=== PATIENT | female | born 1950 | race Caucasian/White ===

== ENCOUNTER 2017-07-02 09:10 | Emergency (ER) | payer MEDICARE ==
[2017-07-02 09:17] VITALS: TEMP 97.7
[2017-07-02] MEDS ORDERED: SODIUM CHLORIDE 0.9% 1,000 ML IV ONE (09:41)
--- NOTE | 2017-07-02 09:46 | ED ---
General Adult HPI - General Chief complaint: Chest Pain Stated complaint: CHEST PAIN, ABNORMAL EKG Time Seen by Provider: 07/02/17 09:21 Source: patient, RN notes reviewed, old records reviewed Mode of arrival: wheelchair Limitations: no limitations - History of Present Illness Initial comments: 67-year-old female presenting for evaluation of cough and chest pain. Patient was sent over from her primary care's office for evaluation of chest pain with suspected EKG changes. Patient initially presented with cough, chills, and burning anterior chest pain. She states the pain is worse with cough. Cough has begun to be productive of yellow sputum. Denies any radiating character to her pain. No history of CAD. Patient does have history of hypertension and hypercholesterolemia. No vomiting or diarrhea. No abdominal pain. No lower extremity swelling. Symptoms began on which was 4 days ago, significantly worsened on Sunday. - Related Data Home Medications Medication Instructions Recorded Confirmed Atorvastatin [Lipitor] 20 mg PO HS 08/11/15 07/02/17 Cholecalciferol [Vitamin D3] 1,000 unit PO DAILY 08/11/15 07/02/17 Fish Oil/Dha/Epa [Fish Oil 1,200 1 cap PO DAILY 08/11/15 07/02/17 mg Fish Oil] Ubidecarenone [Co Q-10] 100 mg PO DAILY 08/11/15 07/02/17 Lisinopril [Zestril] 20 mg PO BID 07/02/17 07/02/17 Previous Rx's Medication Instructions Recorded Albuterol Inhaler [Ventolin Hfa 1 - 2 puff INHALATION Q4HR PRN #1 07/02/17 Inhaler] inhaler Allergies Allergy/AdvReac Type Severity Reaction Status Date / Time codeine Allergy Dizzy & Verified 07/02/17 09:58 vomiting ibuprofen Allergy Abdominal Verified 07/02/17 09:58 Pain mold Allergy Congestion, Verified 07/02/17 09:58 Nausea prednisone Allergy Hallucinations, Verified 07/02/17 09:58 Hyperactivity mildew Allergy Congestion, Uncoded 07/02/17 09:18 Nausea pine trees Allergy Congestion, Uncoded 07/02/17 09:18 Nausea Review of Systems ROS Statement: Those systems with pertinent positive or pertinent negative responses have been documented in the HPI. ROS Other: All systems not noted in ROS Statement are negative. Past Medical History Past Medical History: Hyperlipidemia, Hypertension, Rheumatoid Arthritis (RA) Additional Past Medical History / Comment(s): kidney stones (still have some), gallstaone, mild IBS, lymphedema around aorta History of Any Multi-Drug Resistant Organisms: None Reported Past Surgical History: Hysterectomy, Tonsillectomy Additional Past Surgical History / Comment(s): 1981 partial hysterectomy w/ bladder suspension, Past Anesthesia/Blood Transfusion Reactions: No Reported Reaction Past Psychological History: No Psychological Hx Reported Smoking Status: Former smoker Past Alcohol Use History: None Reported Past Drug Use History: None Reported - Past Family History Mother Family Medical History: Cancer, Coronary Artery Disease (CAD) Additional Family Medical History / Comment(s): ca: lung Father Family Medical History: AICD/Pacemaker, Cancer Additional Family Medical History / Comment(s): from nonhodgkins lymphoma General Exam Limitations: no limitations General appearance: alert, in no apparent distress Head exam: Present: atraumatic, normocephalic Eye exam: Present: normal appearance, PERRL, EOMI ENT exam: Present: normal exam Neck exam: Present: normal inspection. Absent: tenderness, meningismus Respiratory exam: Present: normal lung sounds bilaterally, other (No wheezing, bronchospastic cough). Absent: respiratory distress, wheezes, rhonchi Cardiovascular Exam: Present: regular rate, normal rhythm, normal heart sounds. Absent: rubs GI/Abdominal exam: Present: soft. Absent: distended, tenderness Extremities exam: Present: normal inspection, full ROM, tenderness. Absent: normal capillary refill, pedal edema Neurological exam: Present: alert, oriented X3, CN II-XII intact. Absent: motor sensory deficit Psychiatric exam: Present: normal affect, normal mood Skin exam: Present: warm, dry, intact. Absent: cyanosis, diaphoretic Course Vital Signs 07/02/17 07/02/17 09:14 09:51 Temperature 97.7 F Pulse Rate 94 89 Respiratory 18 16 Rate Blood Pressure 133/64 142/74 O2 Sat by Pulse 100 99 Oximetry - Reevaluation(s) Reevaluation #1: 07/02/17 10:14 Case discussed with the referring physician acute care nursing assistant, states patient was quite lethargic, there was concern as to the possibility of a cardiac cause of her symptoms, and she was sent to the emergency department for evaluation. EKG Findings - EKG Comments: EKG Findings:: EKG normal sinus rhythm, ventricular rate of 90, OR interval 160 , QRS duration 82, QTC 440, there is OR depression in the inferior leads no ST segment elevation or depression, no T-wave abnormality. Medical Decision Making - Medical Decision Making 67-year-old female presenting with a productive cough and generalized weakness. Patient does have a burning anterior chest pain worse with cough. Vital signs stable, laboratory studies reveal normal white blood cell count, stable hemoglobin, electrolytes within normal limits. Troponin negative. D-dimer negative. Influenza is positive. Patient's symptoms have been present for approximately 3-4 days. She is offered Tamiflu, patient declines. Patient will be prescribed albuterol for bronchospastic cough. She will continue to maintain hydration at home. Return with any worsening or changing symptoms. - Lab Data Result diagrams: 07/02/17 09:46 07/02/17 09:46 Lab Results 07/02/17 07/02/17 07/02/17 Range/Units 09:46 09:46 09:46 WBC 7.3 (3.8-10.6) k/uL RBC 5.09 (3.80-5.40) m/uL Hgb 14.4 (11.4-16.0) gm/dL Hct 44.6 (34.0-46.0) % MCV 87.5 (80.0-100.0) fL MCH 28.3 (25.0-35.0) pg MCHC 32.3 (31.0-37.0) g/dL RDW 13.1 (11.5-15.5) % Plt Count 277 (150-450) k/uL Neutrophils % 76 % Lymphocytes % 14 % Monocytes % 7 % Eosinophils % 1 % Basophils % 0 % Neutrophils # 5.5 (1.3-7.7) k/uL Lymphocytes # 1.1 (1.0-4.8) k/uL Monocytes # 0.5 (0-1.0) k/uL Eosinophils # 0.1 (0-0.7) k/uL Basophils # 0.0 (0-0.2) k/uL PT (9.0-12.0) sec INR (<1.2) APTT (22.0-30.0) sec D-Dimer (<0.60) mg/L FEU Sodium 143 (137-145) mmol/L Potassium 4.2 (3.5-5.1) mmol/L Chloride 102 (98-107) mmol/L Carbon Dioxide 27 (22-30) mmol/L Anion Gap 14 mmol/L BUN 17 (7-17) mg/dL Creatinine 0.78 (0.52-1.04) mg/dL Est GFR (CKD-EPI)AfAm >90 (>60 ml/min/1.73 sqM) Est GFR (CKD-EPI)NonAf 78 (>60 ml/min/1.73 sqM) Glucose 92 (74-99) mg/dL Calcium 10.1 (8.4-10.2) mg/dL Magnesium 2.0 (1.6-2.3) mg/dL Total Bilirubin 0.4 (0.2-1.3) mg/dL AST 34 (14-36) U/L ALT 47 (9-52) U/L Alkaline Phosphatase 83 (38-126) U/L Total Creatine Kinase 49 (30-135) U/L CK-MB (CK-2) 0.4 (0.0-2.4) ng/mL CK-MB (CK-2) Rel Index 0.8 Troponin I <0.012 (0.000-0.034) ng/mL Total Protein 6.9 (6.3-8.2) g/dL Albumin 4.3 (3.5-5.0) g/dL Lipase 296 (23-300) U/L Influenza Type A RNA (Not Detectd) Influenza Type B (PCR) (Not Detectd) 07/02/17 07/02/17 Range/Units 09:46 09:46 WBC (3.8-10.6) k/uL RBC (3.80-5.40) m/uL Hgb (11.4-16.0) gm/dL Hct (34.0-46.0) % MCV (80.0-100.0) fL MCH (25.0-35.0) pg MCHC (31.0-37.0) g/dL RDW (11.5-15.5) % Plt Count (150-450) k/uL Neutrophils % % Lymphocytes % % Monocytes % % Eosinophils % % Basophils % % Neutrophils # (1.3-7.7) k/uL Lymphocytes # (1.0-4.8) k/uL Monocytes # (0-1.0) k/uL Eosinophils # (0-0.7) k/uL Basophils # (0-0.2) k/uL PT 9.4 (9.0-12.0) sec INR 0.9 (<1.2) APTT 23.2 (22.0-30.0) sec D-Dimer 0.30 (<0.60) mg/L FEU Sodium (137-145) mmol/L Potassium (3.5-5.1) mmol/L Chloride (98-107) mmol/L Carbon Dioxide (22-30) mmol/L Anion Gap mmol/L BUN (7-17) mg/dL Creatinine (0.52-1.04) mg/dL Est GFR (CKD-EPI)AfAm (>60 ml/min/1.73 sqM) Est GFR (CKD-EPI)NonAf (>60 ml/min/1.73 sqM) Glucose (74-99) mg/dL Calcium (8.4-10.2) mg/dL Magnesium (1.6-2.3) mg/dL Total Bilirubin (0.2-1.3) mg/dL AST (14-36) U/L ALT (9-52) U/L Alkaline Phosphatase (38-126) U/L Total Creatine Kinase (30-135) U/L CK-MB (CK-2) (0.0-2.4) ng/mL CK-MB (CK-2) Rel Index Troponin I (0.000-0.034) ng/mL Total Protein (6.3-8.2) g/dL Albumin (3.5-5.0) g/dL Lipase (23-300) U/L Influenza Type A RNA Detected H (Not Detectd) Influenza Type B (PCR) Not Detected (Not Detectd) Disposition Clinical Impression: Influenza A Disposition: HOME SELF-CARE Condition: Fair Instructions: Influenza (ED) Prescriptions: Albuterol Inhaler [Ventolin Hfa Inhaler] 1 - 2 puff INHALATION Q4HR PRN #1 inhaler PRN Reason: Shortness Of Breath Referrals: Brown Emery MD [Primary Care Provider] - 1-2 days Time of Disposition: 10:50
[2017-07-02 10:00] LABS: Basophils % (A) 0 %; Eosinophils # (A) 0.1 k/uL (0-0.7); Eosinophils % (A) 1 %; HCT 44.6 % (34.0-46.0); HGB 14.4 gm/dL (11.4-16.0); Lymphocytes # (A) 1.1 k/uL (1.0-4.8); Lymphocytes % (A) 14 %; MCH 28.3 pg (25.0-35.0); MCHC 32.3 g/dL (31.0-37.0); MCV 87.5 fL (80.0-100.0); Mean Platelet Volume 6.7; Monocytes # (A) 0.5 k/uL (0-1.0); Monocytes % (A) 7 %; Neutrophils # (A) 5.5 k/uL (1.3-7.7); Neutrophils % (A) 76 %; Platelet Count 277 k/uL (150-450); RBC 5.09 m/uL (3.80-5.40); RDW 13.1 % (11.5-15.5); WBC 7.3 k/uL (3.8-10.6)
--- NOTE | 2017-07-02 10:06 | XR ---
EXAMINATION TYPE: XR chest 2V DATE OF EXAM: 07/02/2017 COMPARISON: NONE HISTORY: Cough congestion and chest pain. TECHNIQUE: Frontal and lateral views of the chest are obtained. FINDINGS: There is no focal air space opacity, pleural effusion, or pneumothorax seen. The cardiac silhouette size is within normal limits. The osseous structures are intact. IMPRESSION: No acute process.
[2017-07-02 10:14] LABS: ALT 47 U/L (9-52); AST 34 U/L (14-36); Albumin 4.3 g/dL (3.5-5.0); Alkaline Phosphatase 83 U/L (38-126); Anion Gap 14 mmol/L; Blood Urea Nitrogen 17 mg/dL (7-17); Calcium 10.1 mg/dL (8.4-10.2); Carbon Dioxide 27 mmol/L (22-30); Chloride 102 mmol/L (98-107); Glucose 92 mg/dL (74-99); Lipase 296 U/L (23-300); Potassium 4.2 mmol/L (3.5-5.1); Sodium 143 mmol/L (137-145); Total Bilirubin 0.4 mg/dL (0.2-1.3); Total Protein 6.9 g/dL (6.3-8.2)
[2017-07-02 10:15] LABS: D-Dimer 0.3 mg/L FEU (<0.60)
[2017-07-02 10:19] LABS: INR 0.9 (<1.2); Partial Thromboplastin Time 23.2 sec (22.0-30.0); Prothrombin Time 9.4 sec (9.0-12.0)
[2017-07-02 10:23] LABS: Creatine Kinase 49 U/L (30-135)
[2017-07-02 10:35] LABS: Creatine Kinase MB 0.4 ng/mL (0.0-2.4); Troponin I <0.012 ng/mL (0.000-0.034)
[2017-07-02 12:20] VITALS: BP 134/69; PULSE 79; RESP 18
== END 2017-07-02 12:20 | disposition home or self-care (01) ==
LOC: EC 09:10
DX: J10.1 Influenza due to other identified influenza virus with other respiratory manifestations (principal); R07.9 Chest pain, unspecified; E78.00 Pure hypercholesterolemia, unspecified; I10 Essential (primary) hypertension; M06.9 Rheumatoid arthritis, unspecified; Z88.5 Allergy status to narcotic agent; Z88.6 Allergy status to analgesic agent; Z91.048 Other nonmedicinal substance allergy status; Z88.8 Allergy status to other drugs, medicaments and biological substances; Z79.899 Other long term (current) drug therapy; Z87.891 Personal history of nicotine dependence
CPT/HCPCS: 36415; 71046; 80053; 82550; 82553; 83690; 83735; 83880; 84484; 85025; 85379; 85610; 85730; 87502; 93005; 96360; 96361; 99285

== ENCOUNTER → 2018-02-14 | Outpatient (CLI) | payer MEDICARE ==
--- NOTE | 2018-02-18 10:01 | MM ---
Reason for exam: screening (asymptomatic). Last mammogram was performed 1 year ago. History: Patient is postmenopausal. Family history of breast cancer in maternal aunt at age 55 and breast cancer in maternal cousin at age 30. Benign stereotactic core biopsy of the left breast. Took estrogen for 4 years beginning at age 32. Physical Findings: A clinical breast exam by your physician is recommended on an annual basis and results should be correlated with mammographic findings. MG 3D Screening Mammo W/Cad Bilateral CC and MLO view(s) were taken. Prior study comparison: February 02, 2017, left breast MG 3d work up w/cad LT. January 31, 2017, bilateral MG 3d screening mammo w/cad. The breast tissue is extremely dense which could obscure a lesion on mammography. No significant changes when compared with prior studies. ASSESSMENT: Benign, BI-RAD 2 RECOMMENDATION: Routine screening mammogram of both breasts in 1 year.
== END | disposition home or self-care (01) ==
LOC: RADMAMWWP 12:55
PROVIDERS: ATTEND Family Medicine
DX: Z12.31 Encounter for screening mammogram for malignant neoplasm of breast (principal)
CPT/HCPCS: 77063; 77067

== ENCOUNTER → 2019-03-05 | Outpatient (CLI) | payer MEDICARE ==
--- NOTE | 2019-03-05 12:10 | MM ---
Reason for exam: screening (asymptomatic). Last mammogram was performed 1 year and 1 month ago. History: Patient is postmenopausal. Family history of breast cancer in maternal aunt at age 55 and breast cancer in maternal cousin at age 30. Benign stereotactic core biopsy of the left breast. Took estrogen for 4 years beginning at age 32. Physical Findings: A clinical breast exam by your physician is recommended on an annual basis and results should be correlated with mammographic findings. MG 3D Screening Mammo W/Cad Bilateral CC and MLO view(s) were taken. Prior study comparison: February 14, 2018, bilateral MG 3d screening mammo w/cad. February 02, 2017, left breast MG 3d work up w/cad LT. The breast tissue is heterogeneously dense. This may lower the sensitivity of mammography. Asymmetric breast tissue left central breast, stable. There is no discrete abnormality. ASSESSMENT: Negative, BI-RAD 1 RECOMMENDATION: Routine screening mammogram of both breasts in 1 year.
== END | disposition home or self-care (01) ==
LOC: RADMAMWWP 10:24
PROVIDERS: ATTEND Family Medicine
DX: Z12.31 Encounter for screening mammogram for malignant neoplasm of breast (principal)
CPT/HCPCS: 77063; 77067

== ENCOUNTER → 2020-06-10 | Outpatient (CLI) | payer MEDICARE ==
--- NOTE | 2020-06-10 12:32 | MM ---
Reason for exam: screening (asymptomatic). Last mammogram was performed 1 year and 3 months ago. History: Patient is postmenopausal. Family history of breast cancer in maternal aunt at age 55 and breast cancer in maternal cousin at age 30. Benign stereotactic core biopsy of the left breast. Took estrogen for 4 years beginning at age 32. Physical Findings: A clinical breast exam by your physician is recommended on an annual basis and results should be correlated with mammographic findings. MG 3D Screening Mammo W/Cad Bilateral CC and MLO view(s) were taken. Prior study comparison: March 05, 2019, bilateral MG 3d screening mammo w/cad. February 14, 2018, bilateral MG 3d screening mammo w/cad. The breast tissue is heterogeneously dense. This may lower the sensitivity of mammography. There are benign appearing round calcifications bilaterally. There is no discrete abnormality. ASSESSMENT: Benign, BI-RAD 2 RECOMMENDATION: Routine screening mammogram of both breasts in 1 year.
== END ==
LOC: RADMAMWWP 09:15
PROVIDERS: ATTEND Family Medicine
DX: Z12.31 Encounter for screening mammogram for malignant neoplasm of breast (principal); Z78.0 Asymptomatic menopausal state; Z80.3 Family history of malignant neoplasm of breast
CPT/HCPCS: 77063; 77067

== ENCOUNTER → 2020-08-10 | Outpatient (CLI) | payer MEDICARE ==
--- NOTE | 2020-08-10 11:29 | CT ---
EXAMINATION TYPE: CT soft tissue neck w con DATE OF EXAM: 08/10/2020 HISTORY: lymphadenopathy COMPARISON: NONE CT DLP: 317.6 mGycm. Automated Exposure Control for Dose Reduction was Utilized. TECHNIQUE: CT scan of the neck is performed with IV Contrast, patient injected with 100 mL of Isovue 300, axial images are obtained, coronal and sagittal reformatted images are reviewed. FINDINGS: Airway: Incidental subcentimeter left thyroid nodules suspected.. Parotid/submandibular glands: No gross abnormality seen. Carotid/Vascular Structures: Mild calcified plaque right carotid bulb. Probable significant stenosis origin of left external carotid artery Osseous Structures: Sclerosis and suspicious pathologic fracture C5 vertebra. No bony retropulsion. A lignment satisfactory. Underlying scoliotic curvature in the cervical thoracic spine Other: Abnormal left supraclavicular lymph node for reference is 1.3 x 1.4 cm lymph node image 30 pos terior to left common carotid artery. Abnormal right-sided supraclavicular lymph nodes also seen, the re is 2.1 x 1.9 cm lymph node axial image 31 compressing IVC anteriorly. Additional abnormal supracla vicular lymph nodes are present bilaterally. Prominent but subcentimeter lymph nodes predominantly throughout the majority of neck, there is enlar ged right posterior cervical triangle 1.3 x 1.0 cm lymph node axial image 60. There is enlarged 1.4 x 1.1 cm left lateral lymph node at level of thyroid gland axial image 42. Larger lymph nodes seen inf erior to this axial image 38. IMPRESSION: Abnormal bilateral supraclavicular adenopathy. 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 Findings strongly suspicious for metastatic neoplasm. Etiology uncertain. Consi emmanuel PET/CT to further evaluate. Consider imaging guided sampling. Correlate clinically to determine e tiology advised.
== END | disposition home or self-care (01) ==
LOC: RADCTMAIN 08:23
PROVIDERS: ATTEND Family Medicine
DX: R59.0 Localized enlarged lymph nodes (principal)
CPT/HCPCS: 70491; Q9967

== ENCOUNTER → 2020-08-27 | Outpatient (CLI) | payer MEDICARE ==
--- NOTE | 2020-08-30 12:44 | PE ---
EXAMINATION TYPE: PET CT fusion skull to thigh DATE OF EXAM: 08/27/2020 COMPARISON: CT neck 17 days ago . HISTORY: Abnormal CT, neck adenopathy TECHNIQUE: Following the intravenous administration of 10.69 mCi of F-18 FDG, whole body images are performed from the skull base to the midthigh. Images are reviewed on the computer in the coronal, a xial, and sagittal planes. Reconstructed rotating images are created on independent workstation and reviewed on the computer. A localization and attenuation correction CT is performed in conjunction with the PET scan. Blood glucose level was 85. SCAN: Initial Scan FINDINGS: Mean SUV mediastinum: 1.05 Mean SUV liver: 2.1 SKULL BASE AND NECK: Redemonstration of multiple abnormal bilateral neck lymph nodes. Confluent Abno rmal adenopathy in the cervical prevertebral region axial image 43. Max SUV is 15.6. Hypermetabolic 1 .1 x 1.0 cm posterior cervical triangle lymph node above the hyoid bone axial image 40. Max SUV is 5. 87. Posterior lower cervical 1.5 x 1.4 cm lymph node axial image 49 is redemonstrated, max SUV is 5.1 3. Largest right supraclavicular lymph node adjacent to right thyroid lobe redemonstrated axial image 61 measuring 2.4 x 2.2 cm, max SUV is 7.9. Additional s scattered hypermetabolic lymph nodes are pre sent. CHEST, MEDIASTINUM, AND HILAR REGION: Abnormal uptake in the anterior superior mediastinum extends to the supraclavicular region bilaterally. Abnormal right lateral upper thoracic hypermetabolic just un emmanuel 1.0 cm lymph node axial image 61, max SUV is 10.01. No abnormal hypermetabolic axillary or additional mid mediastinal or bilateral hilar lymph nodes. ABDOMEN AND PELVIS: Abnormal hypermetabolic 1.4 x 1.2 cm posterior caval lymph node axial image 138, max SUV is 4.02. Abnormal large left periaortic 5.5 x 4.0 cm hypermetabolic lymph node axial image 150, max SUV is 17. 48. Additional scattered hypermetabolic left periaortic lymph nodes extend to level of the iliac bifu rcation. There are additional posterior upper pelvic subcentimeter hypermetabolic lymph nodes for ref erence axial image 174 and 181, max SUV is 3.7. OSSEOUS STRUCTURES: No areas of abnormal hypermetabolic uptake. OTHER CT: Mild to moderate coronary artery calcification. Dependent rim hyperdense gallstone. Nonobst ructing bilateral renal calculi. Uterus surgically absent or markedly atrophic. IMPRESSION: There is hypermetabolic adenopathy greatest in the mid to lower neck and in the left mid to lower retroperitoneum of the abdomen. Involvement above and below diaphragm is noted.
== END | disposition home or self-care (01) ==
LOC: RADPETMAIN 07:58
PROVIDERS: ATTEND Family Medicine
DX: R59.1 Generalized enlarged lymph nodes (principal)
CPT/HCPCS: 78815; A9552

== ENCOUNTER 2020-09-07 11:41 | Day surgery (SDC) | payer MEDICARE ==
[2020-09-07 12:31] VITALS: TEMP 98.3
[2020-09-07 14:13] VITALS: BP 134/81; PULSE 69; RESP 16
--- NOTE | 2020-09-07 16:04 | US ---
EXAMINATION TYPE: US biopsy lymph node DATE OF EXAM: 09/07/2020 HISTORY: Cervical adenopathy. FINDINGS: Maximal barrier technique was utilized. Hand hygiene achieved with soap and water and alco hol-based hand rub. The skin overlying a suitable path to the patient's left exterior neck adenopathy was localized with ultrasound and the overlying skin prepped and draped. Ultrasound was utilized wi th sterile technique. Lidocaine was used for local anesthesia. A skin ag was made with a scalpel. An 18-gauge needle was advanced under direct ultrasound guidance and core specimen obtained of the mass. 2passes were made. Specimen submitted in formalin to Pathology. Following the procedure, hemo stasis achieved and the patient is discharged in stable condition without complication. IMPRESSION:STATUS POST ULTRASOUND GUIDED CORE BIOPSY LEFT CERVICAL ADENOPATHY, PATHOLOGY IS PENDING. THIS PROCEDURE IS PERFORMED BY THE UNDERSIGNED.
== END 2020-09-07 14:10 | disposition home or self-care (01) ==
LOC: RADPROMAIN 11:41
PROVIDERS: ATTEND Family Medicine
DX: R59.0 Localized enlarged lymph nodes (principal)
CPT/HCPCS: 38505; 76942; 88305; 88341; 88342

== ENCOUNTER → 2020-10-15 | Outpatient (CLI) | payer MEDICARE ==
--- NOTE | 2020-10-16 09:08 | ECHOF ---
Referral Reason:Z01.818 Pre chemo exposure MEASUREMENTS -------- HEIGHT: 165.1 cm WEIGHT: 63.5 kg BP: RVIDd: 2.8 cm (< 3.3) IVSd: 1.0 cm (0.6 - 1.1) LVIDd: 4.3 cm (3.9 - 5.3) LVPWd: 1.1 cm (0.6 - 1.1) IVSs: 1.2 cm LVIDs: 3.0 cm LVPWs: 1.3 cm LA Diam: 3.5 cm (2.7 - 3.8) Ao Diam: 3.1 cm (2.0 - 3.7) AV Cusp: 2.0 cm (1.5 - 2.6) MV EXCURSION: 13.666 mm (> 18.000) MV EF SLOPE: 47 mm/s (70 - 150) EPSS: 0.5 cm MV E Fuad: 0.42 m/s MV DecT: 340 ms MV A Fuad: 0.89 m/s MV E/A Ratio: 0.47 RAP: 5.00 mmHg RVSP: 29.04 mmHg FINDINGS -------- Sinus rhythm. This was a technically good study. LV size, wall thickness and systolic function are normal, with an EF greater than 55%. The left yenny tricular size is normal. The right ventricle is normal in size. The left atrial size is normal. The right atrial size is normal. There is mild aortic valve sclerosis. There is no evidence of aortic regurgitation. Mild mitral regurgitation is present. Mild tricuspid regurgitation present. Right ventricular systolic pressure is normal at < 35 mmHg. There is no pulmonic regurgitation present. Echo free space represents a pericardial fat pad. CONCLUSIONS -------- 1. LV size, wall thickness and systolic function are normal, with an EF greater than 55%. 2. The left ventricular size is normal. 3. The right ventricle is normal in size. 4. The left atrial size is normal. 5. The right atrial size is normal. 6. There is mild aortic valve sclerosis. 7. Mild mitral regurgitation is present. 8. Mild tricuspid regurgitation present. 9. Echo free space represents a pericardial fat pad. DOOR MANAGER: Gema Ashraf RD
== END | disposition home or self-care (01) ==
LOC: RADECHMAIN 12:35
PROVIDERS: ATTEND Internal Medicine Hematology & Oncology
DX: Z01.818 Encounter for other preprocedural examination (principal); I08.1 Rheumatic disorders of both mitral and tricuspid valves
CPT/HCPCS: 93306

== ENCOUNTER → 2020-12-31 | Outpatient (CLI) | payer MEDICARE ==
--- NOTE | 2021-01-03 07:58 | PE ---
EXAMINATION TYPE: PET CT fusion skull to thigh DATE OF EXAM: 12/31/2020 COMPARISON: Prior PET/CT August 27, 2020 HISTORY: Lymphoma progress study. Originally diagnosed on neck biopsy November 2020 completed chemother apy December 14, 2020 TECHNIQUE: Following the intravenous administration of 10.34 mCi of F-18 FDG, whole body images are performed from the skull base to the midthigh. Images are reviewed on the computer in the coronal, a xial, and sagittal planes. Reconstructed rotating images are created on independent workstation and reviewed on the computer. A localization and attenuation correction CT is performed in conjunction with the PET scan. Blood glucose level equals 81. SCAN: Subsequent Scan FINDINGS: Mean SUV mediastinum: 0.74 Mean SUV liver: 2.07 SKULL BASE AND NECK: Marked interval improvement in abnormal enlarged and hypermetabolic scattered b ilateral neck lymph nodes. No residual or new hypermetabolic adenopathy. CHEST, MEDIASTINUM, AND HILAR REGION: Interval resolution of abnormal hypermetabolic supraclavicular and right axillary adenopathy. No abnormal hypermetabolic axillary or mediastinal or bilateral hilar lymph nodes currently. ABDOMEN AND PELVIS: Interval resolution of abnormal hypermetabolic enlarged retroperitoneal lymph nod es. Persistent enlarged left retroperitoneal lymph node measuring 3.6 x 2.7 cm axial image 151 at lev el of left kidney is diminished in size from prior study at 5.5 x 4.0 cm. OSSEOUS STRUCTURES: Mild diffuse uptake presumed posttreatment response. No new suspicious areas of focal increased uptake OTHER CT: Left subclavian Mediport catheter terminates in SVC. Mild coronary artery calcification. Dependent rim hyperdense gallstone. Nonobstructing bilateral renal calculi. Uterus surgically absent or markedly atrophic. Liver and spleen stable and normal in size. IMPRESSION: Complete positive treatment response as detailed above. No residual or new hypermetabolic lymph nodes identified.
== END | disposition home or self-care (01) ==
LOC: RADPETMAIN 15:27
PROVIDERS: ATTEND Internal Medicine Hematology & Oncology
DX: C83.38 Diffuse large B-cell lymphoma, lymph nodes of multiple sites (principal); R59.0 Localized enlarged lymph nodes; I25.10 Atherosclerotic heart disease of native coronary artery without angina pectoris; K80.20 Calculus of gallbladder without cholecystitis without obstruction; N20.0 Calculus of kidney
CPT/HCPCS: 78815; A9552

== ENCOUNTER 2021-01-07 10:49 | Day surgery (SDC) | payer MEDICARE ==
[2021-01-07 11:42] VITALS: RESP 18; TEMP 98.3
[2021-01-07] MEDS ORDERED: IOPAMIDOL-300 50ML BTL INJ ONE (11:43)
--- NOTE | 2021-01-07 11:57 | IR ---
Fluoroscopy INDICATION: Pain FINDINGS: Fluoroscopy time: 0.5 minutes. Images obtained: 3 sequences IMPRESSIONS: 1. Documentation of fluoroscopy.
[2021-01-07 12:08] VITALS: BP 144/66; PULSE 76
== END 2021-01-07 12:16 | disposition home or self-care (01) ==
LOC: CATHCVL 10:49
PROVIDERS: ATTEND Radiology Diagnostic Radiology
DX: T85.618A Breakdown (mechanical) of other specified internal prosthetic devices, implants and grafts, initial encounter (principal)
CPT/HCPCS: 36598; Q9967

== ENCOUNTER 2021-02-10 10:02 | Emergency (ER) | payer MEDICARE ==
--- NOTE | 2021-02-10 10:40 | ED ---
Weakness HPI - General Chief complaint: Weakness Stated complaint: Fever/Cough/Headache Time Seen by Provider: 02/10/21 10:12 Source: patient Mode of arrival: wheelchair Limitations: no limitations - History of Present Illness Initial comments: This a 70-year-old female who is currently under treatment for non-Hodgkin's lymphoma last chemotherapy was in January 31 who was sent from [facility] for evaluation she's had a dry cough for about 3 days some chills decreased oral intake weakness chest pain with the cough she states she feels si milar to when she had H1N1 flu several years ago. No palpitations she has had some rhinorrhea also. No other complaints or modifying factors her lab work was done today and appear to be within acceptable limits. MD Complaint: generalized weakness - Related Data Home Medications Medication Instructions Recorded Confirmed Atorvastatin [Lipitor] 20 mg PO HS 08/11/15 02/10/21 Lisinopril [Zestril] 10 mg PO BID 08/25/20 02/10/21 Loratadine [Claritin] 10 mg PO DAILY PRN 01/07/21 02/10/21 Dicyclomine [Bentyl] 10 mg PO TID PRN 02/10/21 02/10/21 Lidocaine-Prilocaine Cream [Emla 1 applic TOPICAL DAILY PRN 02/10/21 02/10/21 Cream 2.5%/2.5%] Metoprolol Tartrate [Lopressor] 50 mg PO BID PRN 02/10/21 02/10/21 Omeprazole 40 mg PO DAILY 02/10/21 02/10/21 ondansetron HCL [Zofran] 8 mg PO Q6H PRN 02/10/21 02/10/21 predniSONE 100 mg PO DIRECTED 02/10/21 02/10/21 Allergies Allergy/AdvReac Type Severity Reaction Status Date / Time wool Allergy Rash/Hives Verified 02/10/21 12:32 codeine AdvReac Dizzy & Verified 02/10/21 12:32 vomiting ibuprofen AdvReac Abdominal Verified 02/10/21 12:32 Pain mold AdvReac Congestion, Verified 02/10/21 12:32 Nausea prednisone AdvReac Hallucinations, Verified 02/10/21 12:32 Hyperactivity mildew AdvReac Congestion, Uncoded 02/10/21 12:32 Nausea pine trees AdvReac Congestion, Uncoded 02/10/21 12:32 Nausea Review of Systems ROS Statement: Those systems with pertinent positive or pertinent negative responses have been documented in the HPI. ROS Other: All systems not noted in ROS Statement are negative. Past Medical History Past Medical History: Hyperlipidemia, Hypertension, Osteoarthritis (OA), Rheumatoid Arthritis (RA) Additional Past Medical History / Comment(s): kidney stones (still have some), gallstones, mild IBS, lymphedema around aorta, osteoporosis, lymphoma History of Any Multi-Drug Resistant Organisms: None Reported Past Surgical History: Hysterectomy, Tonsillectomy Additional Past Surgical History / Comment(s): 1981 partial hysterectomy w/bladder suspension Past Anesthesia/Blood Transfusion Reactions: Previous Problems w/ Anesthesia Additional Past Anesthesia/Blood Transfusion Reaction / Comment(s): woke up on breathing tube still in and had panic attack Past Psychological History: No Psychological Hx Reported Smoking Status: Former smoker Past Alcohol Use History: None Reported - Past Family History Mother Family Medical History: Cancer, Coronary Artery Disease (CAD) Additional Family Medical History / Comment(s): ca: lung Father Family Medical History: AICD/Pacemaker, Cancer Additional Family Medical History / Comment(s): from nonhodgkins lymphoma General Exam - General Exam Comments Initial Comments: This is a well-developed well-nourished awake alert oriented 3 female she does demonstrate some hoarseness Limitations: no limitations General appearance: alert, anxious Head exam: Present: atraumatic, normocephalic, normal inspection Eye exam: Present: normal appearance, PERRL, EOMI. Absent: scleral icterus, conjunctival injection, periorbital swelling ENT exam: Present: mucous membranes dry Neck exam: Present: normal inspection, full ROM, other (Genitourinary bruits). Absent: tenderness, meningismus, lymphadenopathy Respiratory exam: Present: normal lung sounds bilaterally. Absent: respiratory distress, wheezes, rales, rhonchi, stridor, chest wall tenderness Cardiovascular Exam: Present: normal rhythm, tachycardia, normal heart sounds. Absent: systolic murmur, diastolic murmur, rubs, gallop, clicks GI/Abdominal exam: Present: soft, normal bowel sounds. Absent: distended, tenderness, guarding, rebound, rigid Extremities exam: Present: normal inspection, full ROM, normal capillary refill. Absent: tenderness, pedal edema, joint swelling, calf tenderness Back exam: Present: normal inspection Neurological exam: Present: alert, oriented X3, CN II-XII intact Psychiatric exam: Present: normal affect, normal mood Skin exam: Present: warm, dry, intact, normal color. Absent: rash Course Vital Signs 02/10/21 10:05 Temperature 100.0 F H Pulse Rate 118 H Respiratory 20 Rate Blood Pressure 116/71 O2 Sat by Pulse 99 Oximetry Medical Decision Making - Medical Decision Making I did a long discussion with the patient regarding the findings patient's swabs are all negative the patient does appear to have a pharyngitis and viral picture. Patient be discharged increase oral fluids follow-up with her doctor as planned - Lab Data Lab Results 02/10/21 Range/Units 10:33 Influenza Type A (PCR) Not Detected (Not Detectd) Influenza Type B (PCR) Not Detected (Not Detectd) RSV (PCR) Not Detected (Not Detectd) SARS-CoV-2 (PCR) Not Detected (Not Detectd) - Radiology Data Radiology results: report reviewed (Image reviewed no acute findings), image reviewed Disposition Clinical Impression: Viral syndrome, Febrile illness, acute Disposition: HOME SELF-CARE Condition: Good Instructions (If sedation given, give patient instructions): Viral Syndrome (ED) Additional Instructions: Increase oral fluids Is patient prescribed a controlled substance at d/c from ED?: No Referrals: Brown Emery MD [Primary Care Provider] - 1-2 days
--- NOTE | 2021-02-10 11:23 | XR ---
EXAMINATION TYPE: XR chest 2V DATE OF EXAM: 02/10/2021 COMPARISON: 07/02/2017 and PET/CT 12/31/2020 HISTORY: 70-year-old female with cough TECHNIQUE: PA and lateral views FINDINGS: Heart normal size. Aorta and pulmonary vasculature within normal limits. Left anterior chest wall inj ection port with subclavian access and catheter tip at the mid SVC level. Redemonstration of prominen t first rib ends. No consolidation or pleural effusion seen. IMPRESSION: No acute process seen.
[2021-02-10 13:08] VITALS: BP 110/62; PULSE 108; RESP 18; TEMP 99.3
== END 2021-02-10 13:21 | disposition home or self-care (01) ==
LOC: EC 10:02
DX: B34.9 Viral infection, unspecified (principal); R50.9 Fever, unspecified; E78.5 Hyperlipidemia, unspecified; I10 Essential (primary) hypertension; M19.90 Unspecified osteoarthritis, unspecified site; M81.0 Age-related osteoporosis without current pathological fracture; Z20.822 Contact with and (suspected) exposure to COVID-19; Z88.5 Allergy status to narcotic agent; Z88.6 Allergy status to analgesic agent; Z87.442 Personal history of urinary calculi; Z90.710 Acquired absence of both cervix and uterus; Z87.891 Personal history of nicotine dependence; Z85.72 Personal history of non-Hodgkin lymphomas; Z79.899 Other long term (current) drug therapy
CPT/HCPCS: 71046; 87636; 99285

== ENCOUNTER → 2021-04-07 | Outpatient (CLI) | payer MEDICARE ==
--- NOTE | 2021-04-11 07:59 | PE ---
EXAMINATION TYPE: PET CT fusion skull to thigh DATE OF EXAM: 04/07/2021 COMPARISON: Prior PET/CT December 31, 2020 and older studies HISTORY: Lymphoma diagnosed October 2020 on neck biopsy completed chemotherapy in December . TECHNIQUE: Following the intravenous administration of 8.47 mCi of F-18 FDG, whole body images are p erformed from the skull base to the midthigh. Images are reviewed on the computer in the coronal, ax ial, and sagittal planes. Reconstructed rotating images are created on independent workstation and r eviewed on the computer. A localization and attenuation correction CT is performed in conjunction w ith the PET scan. Blood glucose level equals 90. SCAN: Subsequent Scan FINDINGS: Mean SUV mediastinum: 0.93 Mean SUV liver: 2.21 SKULL BASE AND NECK: No recurrent enlarged or hypermetabolic adenopathy. CHEST, MEDIASTINUM, AND HILAR REGION: No recurrent hypermetabolic or enlarged thoracic lymph nodes cu rrently. ABDOMEN AND PELVIS: No recurrent enlarged hypermetabolic adenopathy including retroperitoneum. Stabl e enlarged ametabolic left paraaortic lymph node axial image 150 measuring approximately 3.8 x 2.5 cm . OSSEOUS STRUCTURES: No new suspicious areas of focal increased uptake. Interval resolution of mild d iffuse osseous uptake. OTHER CT: Left subclavian Mediport catheter terminates in SVC. Mild coronary artery calcification. Dependent rim hyperdense gallstone redemonstrated. Nonobstructing small bilateral renal calculi redem onstrated. Uterus surgically absent or markedly atrophic. Liver and spleen stable and normal in size. IMPRESSION: Complete positive treatment response remains present. No new enlarged hypermetabolic lymp h nodes identified.
== END | disposition home or self-care (01) ==
LOC: RADPETMAIN 09:06
PROVIDERS: ATTEND Internal Medicine Hematology & Oncology
DX: C83.38 Diffuse large B-cell lymphoma, lymph nodes of multiple sites (principal)
CPT/HCPCS: 78815; A9552

== ENCOUNTER → 2021-09-09 | Outpatient (CLI) | payer MEDICARE ==
--- NOTE | 2021-09-12 20:02 | MM ---
Reason for Exam: Screening (asymptomatic). Last mammogram was performed 1 year(s) and 3 month(s) ago. Patient History: Menarche at age 10. First Full-Term at age 19. Left ovary removed at age 32. Right ovary removed at age 32. Hysterectomy at age 32. Postmenopausal. Estrogen for 4 years from age 32 until age 36. Benign Stereotactic Core Biopsy on the left side. Maternal cousin had breast cancer, age 30. Maternal aunt had breast cancer, age 55. Risk Values: Olga 5 year model risk: 1.9%. NCI Lifetime model risk: 4.6%. Prior Study Comparison: 02/14/2018 Bilateral Screening Mammogram, [facility]. 03/05/2019 Bilateral Screening Mammogram, [facility]. 06/10/2020 Bilateral Screening Mammogram, [facility]. Tissue Density: The breast tissue is heterogeneously dense. This may lower the sensitivity of mammography. Findings: Analyzed By CAD. Chronic low density nodularity more apparent on 3-D images within the central left CC view. No significant change from prior exams. Overall Assessment: Benign, BI-RAD 2 Management: Screening Mammogram of both breasts in 1 year. A clinical breast exam by your physician is recommended on an annual basis and results should be correlated with mammographic findings. Also, the patient should continue monthly self breast exams. Electronically signed and approved by: Milton Lopez M.D. Radiologist
== END | disposition home or self-care (01) ==
LOC: RADMAMWWP 08:08
PROVIDERS: ATTEND Family Medicine
DX: Z12.31 Encounter for screening mammogram for malignant neoplasm of breast (principal); Z78.0 Asymptomatic menopausal state; Z80.3 Family history of malignant neoplasm of breast
CPT/HCPCS: 77063; 77067

== ENCOUNTER → 2021-10-28 | Outpatient (CLI) | payer MEDICARE ==
--- NOTE | 2021-10-28 13:19 | CT ---
EXAMINATION TYPE: CT ChestAbdPelvis w con DATE OF EXAM: 10/28/2021 COMPARISON: None HISTORY: Lymphoma CT DLP: 806.1 mGycm Automated exposure control for dose reduction was used. CONTRAST: CT scan of the chest, abdomen and pelvis is performed with Oral Contrast and with IV Contrast, patien t injected with 100 mL of Isovue 300. FINDINGS: CT chest: The lungs are clear of consolidative or interstitial density. There is a small 3 mm groundglass nodul e in the left lower lobe posteriorly. There is no pleural effusion, pleural thickening or pneumothorax. The great vessels chest are normal there is no mediastinal, hilar or axillary adenopathy. The osseous structures of the thorax are intact. CT abdomen pelvis: There is a single large gallstone within the gallbladder is nondistended and there is no wall thicken ing or pericholecystic fluid there is no biliary ductal dilatation. There is no focal mass or organomegaly involving the liver, pancreas, spleen or adrenal glands. Kidneys excrete contrast promptly and symmetrically is no solid renal mass or process. There is a 2 - 3 mm nonobstructing left renal calcification and 3 nonobstructing right renal calcifications the larg est of which is 6 mm. There are 2 enlarged retroperitoneal lymph nodes to the left aorta measuring 2.5 cm and 2 cm caliber of the abdominal aorta is normal. There is no pelvic mass, free fluid, abscess or adenopathy. There are surgical absence of uterus. The osseous structures are intact. IMPRESSION: 1. Retroperitoneal adenopathy as described above. 2. 3 mm groundglass nodule in the left lung base 3. Gallstone 4. Bilateral nonobstructing renal calcifications.
== END | disposition home or self-care (01) ==
LOC: RADCTMAIN 10:02
PROVIDERS: ATTEND Internal Medicine Hematology & Oncology
DX: Z03.89 Encounter for observation for other suspected diseases and conditions ruled out (principal); C83.38 Diffuse large B-cell lymphoma, lymph nodes of multiple sites; R59.9 Enlarged lymph nodes, unspecified; R91.1 Solitary pulmonary nodule; K80.80 Other cholelithiasis without obstruction; N28.89 Other specified disorders of kidney and ureter
CPT/HCPCS: 82565; 84520; 71260; 74177; Q9967 ×2

== ENCOUNTER → 2022-02-14 | Outpatient (CLI) | payer MEDICARE ==
--- NOTE | 2022-02-14 12:40 | CT ---
EXAMINATION TYPE: CT ChestAbdPelvis w con CT DLP: 692.70 mGycm, Automated exposure control for dose reduction was used. DATE OF EXAM: 02/14/2022 11:28 AM COMPARISON: 10/28/2021 CT chest abdomen pelvis, PET/CT 04/07/2021. CLINICAL INDICATION:Female, 72 years old with history of C83.38 lymphoma, Hx Lymphoma. 3 month check up. Technique: Multiple axial images of the chest, abdomen, and pelvis were obtained. Two-dimensional cor onal and sagittal reconstructions were obtained. Contrast used:100 mL of Isovue 300 with IV Contrast, Oral contrast used: with Oral Contrast Findings: CHEST: LUNGS/ PLEURA: No evidence focal consolidation, pneumothorax or pleural effusion groundglass nodule s een on prior is not definitively visualized. There is some atelectasis along the major fissure. AIRWAY: Patent and unremarkable. HEART: Size within normal limits. MEDIASTINUM: No gross evidence of adenopathy. VASCULATURE: No aortic aneurysm. MUSCULOSKELETAL: No acute osseous abnormalities. SOFT TISSUES/LYMPH NODES: Unremarkable. LOWER NECK: No significant findings. ABDOMEN: ABDOMEN LIVER: Unremarkable GALLBLADDER AND BILE DUCTS: Cholelithiasis. PANCREAS: Unremarkable. SPLEEN: Unremarkable. ADRENAL GLANDS: Unremarkable. KIDNEYS AND URETERS: No evidence of hydronephrosis right nonobstructing renal calculi. PELVIS BLADDER: Unremarkable REPRODUCTIVE: Unremarkable. ABDOMEN & PELVIS STOMACH AND BOWEL: No evidence of bowel obstruction. PERITONEUM: No evidence of pneumoperitoneum or free fluid. VASCULATURE: No evidence of aortic aneurysm. MUSCULOSKELETAL: No acute osseous abnormalities, mild multilevel disc degeneration changes. LYMPH NODES: No gross evidence for lymphadenopathy. Persistent enlarged lymph nodes are seen in the r etroperitoneum along the aorta the largest on prior measured 2.7 cm now measures 2.4 cm additional sm aller lymph nodes are seen along the aorta. SOFT TISSUE/ABDOMINAL WALL: Fat-containing umbilical hernia. IMPRESSION: There remains conglomerate lymphadenopathy along the abdominal aorta which may be fractionally smalle r than prior. Consider PET/CT for comparison of metabolic activity.
== END | disposition home or self-care (01) ==
LOC: RADCTMAIN 08:57
PROVIDERS: ATTEND Internal Medicine Hematology & Oncology
DX: C83.38 Diffuse large B-cell lymphoma, lymph nodes of multiple sites (principal)
CPT/HCPCS: 82565; 84520; 71260; 74177; 36415; Q9967

== ENCOUNTER → 2022-10-13 | Outpatient (CLI) | payer MEDICARE ==
--- NOTE | 2022-10-13 12:12 | MM ---
Reason for Exam: Screening (asymptomatic). Last mammogram was performed 1 year(s) and 1 month(s) ago. Patient History: Menarche at age 10. First Full-Term at age 19. Left ovary removed at age 32. Right ovary removed at age 32. Hysterectomy at age 32. Postmenopausal. Estrogen for 4 years from age 32 until age 36. Benign Stereotactic Core Biopsy on the left side. Maternal cousin had breast cancer, age 30. Maternal aunt had breast cancer, age 55. Risk Values: Olga 5 year model risk: 1.9%. NCI Lifetime model risk: 4.3%. Prior Study Comparison: 03/05/2019 Bilateral Screening Mammogram, [facility]. 06/10/2020 Bilateral Screening Mammogram, [facility]. 09/09/2021 Bilateral MG 3D screening mammo w/cad, [facility]. Tissue Density: The breast tissue is heterogeneously dense. This may lower the sensitivity of mammography. Findings: Analyzed By CAD. There is no suspicious group of microcalcifications or new suspicious mass in either breast. Overall Assessment: Negative, BI-RAD 1 Management: Screening Mammogram of both breasts in [address] [facility] will attempt to contact patient to return for supplemental views and ultrasound if indicated. Patient should continue monthly self-breast exams. A clinical breast exam by your physician is recommended on an annual basis. This exam should not preclude additional follow-up of suspicious palpable abnormalities. Note on Olga scores and lifetime risk: 1. A Olga score greater than 3% is considered moderate risk. If this is the case, consider specialist referral to assess eligibility for a risk reducing agent. 2. If overall lifetime risk for the development of breast cancer is 20% or higher, the patient may qualify for future screening with alternating mammogram and breast MRI. Electronically signed and approved by: José Miguel Bryant DO
== END | disposition home or self-care (01) ==
LOC: RADMAMWWP 08:33
PROVIDERS: ATTEND Family Medicine
DX: Z12.31 Encounter for screening mammogram for malignant neoplasm of breast (principal); Z78.0 Asymptomatic menopausal state; Z80.3 Family history of malignant neoplasm of breast
CPT/HCPCS: 77063; 77067

== ENCOUNTER → 2022-11-20 | Outpatient (CLI) | payer MEDICARE ==
[2022-11-20 09:26] LABS: African American GFR (CKD) 81 (>60 ml/min/1.73 sqM); Blood Urea Nitrogen 15 mg/dL (7-17)
[2022-11-20 09:27] LABS: Non-African American GFR(CKD) 70 (>60 ml/min/1.73 sqM)
--- NOTE | 2022-11-20 11:29 | CT ---
EXAMINATION TYPE: CT ChestAbdPelvis w con DATE OF EXAM: 11/20/2022 COMPARISON: PET/CT on 05/19/2022. HISTORY: LYMPHOMA CT DLP: 826.8 mGycm Automated exposure control for dose reduction was used. CONTRAST: CT scan of the chest, abdomen and pelvis is performed with Oral Contrast and with IV Contrast, patien t injected with 100 mL of Isovue 300. FINDINGS: CHEST: Mediastinum and Romina: There is no axillary, mediastinal or hilar lymphadenopathy. Pleural and Pericardial spaces: There are no pleural or pericardial effusions. Cardiovascular: The thoracic aorta is normal in size without evidence of aneurysm or dissection. Pulmonary Artery: There are no central pulmonary arterial filling defects. Lung Parenchyma and Airways: The lungs are clear. ABDOMEN: Liver and Biliary system: Normal. Adrenal glands: Normal. Kidneys and ureters: Unchanged bilateral renal stones with the largest in the upper pole of the righ t kidney measuring 6.1 mm in diameter the largest in the upper pole of the left kidney measuring 3 mm in diameter. No hydronephrosis or suspicious renal lesions are seen. Spleen: Normal. Pancreas: Normal. Gallbladder: Also new is seen within the gallbladder. Lymph nodes, Peritoneum and mesentery: There are several enlarged lymph nodes within the retroperito neum measuring up to 2.2 cm in short axis diameter which are unchanged since the prior PET/CT examina tion. Gastrointestinal tract: There are no dilated loops of bowel or free intraperitoneal air. . The appe ndix is not clearly seen with no secondary changes of appendicitis otherwise identified. Aorta/IVC: There is mild vascular calcification throughout the abdominal aorta without evidence of aneurysmal dilation or dissection.. IVC normal. Abdominal wall: Normal. PELVIS: Fluid: There is no free fluid in the pelvis. Lymph Nodes: There is no pelvic or inguinal lymphadenopathy.. Urinary bladder: Normal. BONES: There are no osseous destructive lesions.. ADDITIONAL SIGNIFICANT FINDINGS: None. IMPRESSION: 1. Unchanged adenopathy within the retroperitoneum when compared to the PET/CT of 05/19/2022. 2. No new or enlarging lymph nodes otherwise identified at this time. 3. Cholelithiasis. 4. Multiple bilateral nonobstructing renal stones are unchanged. 5. No acute findings.
== END | disposition home or self-care (01) ==
LOC: RADCTMAIN 08:35
PROVIDERS: ATTEND Internal Medicine Hematology & Oncology
DX: C83.38 Diffuse large B-cell lymphoma, lymph nodes of multiple sites (principal); I47.9 Paroxysmal tachycardia, unspecified; N20.0 Calculus of kidney; K80.20 Calculus of gallbladder without cholecystitis without obstruction; I10 Essential (primary) hypertension; E78.5 Hyperlipidemia, unspecified; R59.0 Localized enlarged lymph nodes
CPT/HCPCS: 82565; 84520; 71260; 74177; 36415; Q9967

== ENCOUNTER → 2023-05-25 | Outpatient (CLI) | payer MEDICARE ==
[2023-05-25 09:34] LABS: African American GFR (CKD) 73 (>60 ml/min/1.73 sqM); Blood Urea Nitrogen 18 mg/dL (7-17); Non-African American GFR(CKD) 64 (>60 ml/min/1.73 sqM)
--- NOTE | 2023-05-25 11:40 | CT ---
EXAMINATION: CT CHEST, ABDOMEN AND PELVIS WITH IV CONTRAST DATE OF EXAMINATION: 05/25/2023. COMPARISON: 11/20/2022.. INDICATION: Lymphoma. PROCEDURE: Axial CT of the chest, abdomen and pelvis was performed following the intravenous adminis tration of 100 ml Isovue 300. Coronal and sagittal reformats were performed. CT dose lowering techni ques were used, to include: automated exposure control, adjustment for patient size, and/or use of it erative reconstruction. FINDINGS: CHEST: Mediastinum and Romina: There is no axillary, mediastinal or hilar lymphadenopathy. Pleural and Pericardial spaces: There are no pleural or pericardial effusions. Cardiovascular: Mild vascular calcification is seen throughout the thoracic aorta without evidence of aneurysmal dilation or dissection. Mild coronary calcium is seen within the left anterior descending . Pulmonary Artery: There are no central pulmonary arterial filling defects. Lung Parenchyma and Airways: The lungs are clear. ABDOMEN: Liver and Biliary system: Normal. Adrenal glands: Normal. Kidneys and ureters: 5.4 mm stone in the upper pole of the right kidney. 2 mm stone in the upper diamond e the right kidney. The kidneys otherwise appear unremarkable. Spleen: Normal. Pancreas: Normal. Gallbladder: Gallstone is seen within the gallbladder. Lymph nodes, Peritoneum and mesentery: Scattered prominent lymph nodes are seen throughout the retro peritoneum with an enlarged lymph node measuring up to 1.8 cm in short axis diameter in the left glo aortic region which is similar to the previous examination. No new adenopathy is seen. There is no me senteric adenopathy. Gastrointestinal tract: There are no dilated loops of bowel or free intraperitoneal air. . The appe ndix is not clearly seen with no secondary changes of appendicitis identified. Aorta/IVC: There is mild vascular calcification to moderate vascular calcification throughout the a bdominal aorta without evidence of aneurysmal dilation or dissection.. IVC normal. Abdominal wall: Normal. PELVIS: Fluid: There is no free fluid in the pelvis. Lymph Nodes: There is no pelvic or inguinal lymphadenopathy.. Urinary bladder: Normal. BONES: There are no osseous destructive lesions.. ADDITIONAL SIGNIFICANT FINDINGS: None. IMPRESSION: 1. Unchanged adenopathy within the retroperitoneum. 2. No acute process otherwise seen within the chest, abdomen or pelvis. 3. Cholelithiasis. 4. Nonobstructing right renal stones.
== END | disposition home or self-care (01) ==
LOC: RADCTMAIN 08:30
PROVIDERS: ATTEND Internal Medicine Hematology & Oncology
DX: K80.20 Calculus of gallbladder without cholecystitis without obstruction (principal); N20.0 Calculus of kidney; C83.38 Diffuse large B-cell lymphoma, lymph nodes of multiple sites
CPT/HCPCS: 82565; 84520; 71260; 74177; 36415; Q9967

== ENCOUNTER → 2023-10-19 | Outpatient (CLI) | payer MEDICARE ==
--- NOTE | 2023-10-26 12:45 | MM ---
Reason for Exam: Screening (asymptomatic). Last screening mammogram was performed 12 month(s) ago. Patient History: Menarche at age 10. First Full-Term at age 19. Left ovary removed at age 32. Right ovary removed at age 32. Hysterectomy at age 32. Postmenopausal. Estrogen for 4 years from age 32 until age 36. Benign Stereotactic Core Biopsy on the left side. Maternal cousin had breast cancer, age 30. Maternal aunt had breast cancer, age 55. Risk Values: Olga 5 year model risk: 1.9%. NCI Lifetime model risk: 4.0%. Prior Study Comparison: 06/10/2020 Bilateral Screening Mammogram, [facility]. 09/09/2021 Bilateral MG 3D screening mammo w/cad, [facility]. 10/13/2022 Bilateral MG 3D screening mammo w/cad, [facility]. Tissue Density: The breasts are heterogeneously dense, which may obscure small masses. Findings: Analyzed By CAD. Right breast: There is no suspicious group of microcalcifications or new suspicious mass. Left breast: There is no suspicious group of microcalcifications or new suspicious mass. Overall Assessment: Negative, BI-RAD 1 Management: Screening Mammogram of both breasts in [address] [facility] will attempt to contact patient to return for supplemental views and ultrasound if indicated. Patient should continue monthly self-breast exams. A clinical breast exam by your physician is recommended on an annual basis. This exam should not preclude additional follow-up of suspicious palpable abnormalities. Note on Olga scores and lifetime risk: 1. A Olga score greater than 3% is considered moderate risk. If this is the case, consider specialist referral to assess eligibility for a risk reducing agent. 2. If overall lifetime risk for the development of breast cancer is 20% or higher, the patient may qualify for future screening with alternating mammogram and breast MRI. Electronically signed and approved by: José Miguel Bryant DO
== END | disposition home or self-care (01) ==
LOC: RADMAMWWP 08:15
PROVIDERS: ATTEND Family Medicine
DX: Z12.31 Encounter for screening mammogram for malignant neoplasm of breast (principal); R92.333 Mammographic heterogeneous density, bilateral breasts; Z78.0 Asymptomatic menopausal state; Z80.3 Family history of malignant neoplasm of breast
CPT/HCPCS: 77063; 77067

== ENCOUNTER → 2024-06-24 | Outpatient (CLI) | payer MEDICARE ==
--- NOTE | 2024-06-24 13:12 | CT ---
EXAMINATION TYPE: CT ChestAbdPelvis wo con DATE OF EXAM: 06/24/2024 12:45 PM COMPARISON: 05/25/2023 CLINICAL INDICATION: Female, 74 years old with history of C83.38 DIFFUSE LARGE B-CELL LYMPHOMA, LYMPH NODES, f/u lymphoma TECHNIQUE: CT imaging performed with sagittal coronal reformats. Unenhanced CT of the chest ,abdomen and pelvis is performed. The lack of intravenous contrast limits evaluation of the solid and hollow viscera. CT DLP: 371.7 mGycm, Automated exposure control for dose reduction was used. Oral contrast: No FINDINGS: CT Chest: LUNGS: The lungs are clear and free of infiltrate or atelectasis. No pulmonary nodule or mass is det ected. No pleural effusion or CT evidence of interstitial lung disease. MEDIASTINUM: Thoracic aorta is of normal caliber. The heart is not enlarged. No evidence for media stinal mass or adenopathy. HEART: Size within normal limits. No significant coronary artery calcifications. HILAR STRUCTURES: No evidence for mass. No hilar adenopathy is appreciated. OTHER: No significant abnormality. CONTRAST CT ABDOMEN AND PELVIS: LIVER/GB: Cholelithiasis. No space occupying hepatic lesion. Biliary tree is of normal caliber. PANCREAS: No inflammation. No distinct mass. SPLEEN: No splenic enlargement. No lesion seen. ADRENALS: No nodule. No thickening. KIDNEYS/BLADDER: No hydronephrosis. Nonobstructive nephrolithiasis. No disctinct renal mass. BOWEL: Normal appendix. Normal bowel caliber. No inflammation. GENITAL ORGANS: No gross abnormality. LYMPH NODES: Left para-aortic adenopathy with lymph nodes measuring up to 1.8 cm versus 1.8 cm previo usly. Additional periaortic lymph nodes seen unchanged from prior examination. Lack of contrast does limit evaluation. AORTA: No significant abnormality. OSSEOUS STRUCTURES: No significant abnormality is seen. OTHER: No significant additional abnormality is seen. IMPRESSION: 1. Stable left-sided para-aortic adenopathy. 2. Uncomplicated cholelithiasis. 3. Nonobstructing nephrolithiasis. [facility], , 06/24/2024 1:10 PM
== END | disposition home or self-care (01) ==
LOC: RADCTMAIN 12:10
PROVIDERS: ATTEND Internal Medicine Hematology & Oncology
DX: C83.38 Diffuse large B-cell lymphoma, lymph nodes of multiple sites (principal); K80.20 Calculus of gallbladder without cholecystitis without obstruction; N20.0 Calculus of kidney; I47.9 Paroxysmal tachycardia, unspecified; I10 Essential (primary) hypertension; E78.5 Hyperlipidemia, unspecified
CPT/HCPCS: 71250; 74176